=== PATIENT | female | born 1980 | race Caucasian/White ===

== ENCOUNTER 2021-01-09 03:47 | Emergency (ER) | payer SELFPAY ==
--- NOTE | 2021-01-09 03:58 | EDM.PDOC ---
ED HPI GENERAL MEDICAL PROBLEM - General Chief Complaint: Respiratory Problem Stated Complaint: COVID POSITIVE, CHEST PAIN Time Seen by Provider: 01/09/21 03:52 Source of Information: Reports: Patient History Limitations: Reports: No Limitations - History of Present Illness INITIAL COMMENTS - FREE TEXT/NARRATIVE: Is a 40-year-old female presents today for cough fatigue and back pain. Patient that she has had symptoms of cold for the past 2 weeks and her tested positive. She came in today because she has a palpitations made her nervous. She also has upper back pain. She denies any shortness of breath states she has some fever and chills earlier she took Tylenol and [id number] meds for. Currently on exam she complains only of upper back pain which also states been chronic for some time does not change. She denies any abdominal pain nausea vomiting or other complaints. back area Pain Score (Numeric/FACES): 4 - Related Data Allergies Allergy/AdvReac Type Severity Reaction Status Date / Time No Known Allergies Allergy Verified 01/09/21 03:58 Home Meds: Home Meds . [No Known Home Meds] 01/09/21 [History] ED ROS GENERAL - Review of Systems Review Of Systems: See Below Constitutional: Reports: No Symptoms HEENT: Reports: No Symptoms Respiratory: Reports: No Symptoms Cardiovascular: Reports: Palpitations Endocrine: Reports: No Symptoms GI/Abdominal: Reports: No Symptoms : Reports: No Symptoms Musculoskeletal: Reports: Back Pain Skin: Reports: No Symptoms Neurological: Reports: No Symptoms Psychiatric: Reports: No Symptoms Hematologic/Lymphatic: Reports: No Symptoms Immunologic: Reports: No Symptoms ED EXAM, GENERAL - Physical Exam Exam: See Below Exam Limited By: No Limitations General Appearance: Alert, WD/WN, No Apparent Distress Eye Exam: Bilateral Eye: EOMI, PERRL Head: Atraumatic Respiratory/Chest: No Respiratory Distress, Lungs Clear, Normal Breath Sounds Cardiovascular: Normal Peripheral Pulses, Regular Rate, Rhythm Peripheral Pulses: 2+: Radial (L), Radial (R) GI/Abdominal: Normal Bowel Sounds, Soft, Non-Tender Back Exam: Normal Inspection Extremities: Normal Inspection, Normal Range of Motion Neurological: Alert, Oriented, CN II-XII Intact, Normal Cognition, Normal Gait ED GENERAL MEDICAL PROCEDURES - Laceration/Wound Repair Head Lac/wound length in cm: 8 Appearance: Superficial Skin Prep: Saline Saline irrigation (cc's): 1,000 Exploration/Debridement/Repair: Wound Explored Closed with: Harper # of Sutures: 9 Tetanus Status Addressed: Yes Complications: No #1 Interpretation EKG Date: 01/09/21 Time: 03:48 Rhythm: NSR Rate (Beats/Min): 70 ST-T: Normal Course - Vital Signs Last Recorded V/S: Last Vital Signs Temp 96.8 F L 01/09/21 03:59 Pulse 79 01/09/21 04:45 Resp 18 01/09/21 04:45 BP 90/63 01/09/21 04:45 Pulse Ox 99 01/09/21 04:45 - Orders/Labs/Meds Orders: Active Orders 24 hr Category Date Time Status EKG Documentation Completion [RC] STAT Care 01/09/21 03:55 Active Labs: Laboratory Tests 01/09/21 01/09/21 01/09/21 Range/Units 04:00 04:00 04:00 WBC 12.10 H (4.0-11.0) K/uL RBC 4.38 (4.30-5.90) M/uL Hgb 13.1 (12.0-16.0) g/dL Hct 38.9 (36.0-46.0) % MCV 88.8 (80.0-98.0) fL MCH 29.9 (27.0-32.0) pg MCHC 33.7 (31.0-37.0) g/dL RDW Std Deviation 41.3 (28.0-62.0) fl RDW Coeff of Tramaine 13 (11.0-15.0) % Plt Count 305 (150-400) K/uL MPV 9.50 (7.40-12.00) fL Neut % (Auto) 73.3 (48.0-80.0) % Lymph % (Auto) 24.4 (16.0-40.0) % [place] % (Auto) 1.4 (0.0-15.0) % Eos % (Auto) 0.7 (0.0-7.0) % Baso % (Auto) 0.2 (0.0-1.5) % Neut # (Auto) 8.9 H (1.4-5.7) K/uL Lymph # (Auto) 3.0 H (0.6-2.4) K/uL [place] # (Auto) 0.2 (0.0-0.8) K/uL Eos # (Auto) 0.1 (0.0-0.7) K/uL Baso # (Auto) 0.0 (0.0-0.1) K/uL Nucleated RBC % 0.0 /100WBC Nucleated RBCs # 0 K/uL D-Dimer, Quantitative 3.33 H (0.0-0.50) mg/L FEU Sodium 139 (136-145) mmol/L Potassium 3.9 (3.5-5.1) mmol/L Chloride 103 (98-107) mmol/L Carbon Dioxide 31.1 (21.0-32.0) mmol/L BUN 25 H (7.0-18.0) mg/dL Creatinine 0.9 (0.6-1.0) mg/dL Est Cr Clr Drug Dosing 86.84 mL/min Estimated GFR (MDRD) > 60.0 ml/min Glucose 102 (74-106) mg/dL Calcium 9.4 (8.5-10.1) mg/dL Total Bilirubin 0.3 (0.2-1.0) mg/dL AST 54 H (15-37) IU/L ALT 109 H (14-63) IU/L Alkaline Phosphatase 67 (46-116) U/L Troponin I < 0.050 (0.000-0.056) ng/mL Total Protein 6.6 (6.4-8.2) g/dL Albumin 3.2 L (3.4-5.0) g/dL Globulin 3.4 (2.6-4.0) g/dL Albumin/Globulin Ratio 0.9 (0.9-1.6) HCG, Qual (NEG) 01/09/21 Range/Units 04:00 WBC (4.0-11.0) K/uL RBC (4.30-5.90) M/uL Hgb (12.0-16.0) g/dL Hct (36.0-46.0) % MCV (80.0-98.0) fL MCH (27.0-32.0) pg MCHC (31.0-37.0) g/dL RDW Std Deviation (28.0-62.0) fl RDW Coeff of Tramaine (11.0-15.0) % Plt Count (150-400) K/uL MPV (7.40-12.00) fL Neut % (Auto) (48.0-80.0) % Lymph % (Auto) (16.0-40.0) % [place] % (Auto) (0.0-15.0) % Eos % (Auto) (0.0-7.0) % Baso % (Auto) (0.0-1.5) % Neut # (Auto) (1.4-5.7) K/uL Lymph # (Auto) (0.6-2.4) K/uL [place] # (Auto) (0.0-0.8) K/uL Eos # (Auto) (0.0-0.7) K/uL Baso # (Auto) (0.0-0.1) K/uL Nucleated RBC % /100WBC Nucleated RBCs # K/uL D-Dimer, Quantitative (0.0-0.50) mg/L FEU Sodium (136-145) mmol/L Potassium (3.5-5.1) mmol/L Chloride (98-107) mmol/L Carbon Dioxide (21.0-32.0) mmol/L BUN (7.0-18.0) mg/dL Creatinine (0.6-1.0) mg/dL Est Cr Clr Drug Dosing mL/min Estimated GFR (MDRD) ml/min Glucose (74-106) mg/dL Calcium (8.5-10.1) mg/dL Total Bilirubin (0.2-1.0) mg/dL AST (15-37) IU/L ALT (14-63) IU/L Alkaline Phosphatase (46-116) U/L Troponin I (0.000-0.056) ng/mL Total Protein (6.4-8.2) g/dL Albumin (3.4-5.0) g/dL Globulin (2.6-4.0) g/dL Albumin/Globulin Ratio (0.9-1.6) HCG, Qual NEGATIVE (NEG) Meds: Medications Discontinued Medications Generic Name Dose Route Start Last Admin Trade Name Freq PRN Reason Stop Dose Admin Acetaminophen 1,000 mg 01/09/21 05:44 Acetaminophen 500 Mg Tab PO 01/09/21 05:45 ONETIME ONE Iopamidol 75 ml 01/09/21 04:58 01/09/21 05:33 Iopamidol 755 Mg/Ml 500 Ml Multipack Bottle IVPUSH 01/09/21 04:59 75 ml ONETIME ONE Administration Ondansetron HCl 4 mg 01/09/21 05:44 Ondansetron 4 Mg Tab.Dis PO 01/09/21 05:45 ONETIME ONE - Re-Assessments/Exams Free Text/Narrative Re-Assessment/Exam: 01/09/21 06:02 [place] labs x-ray and CT PE are reviewed. Patient continues to sat well and looks well on exam will be discharged to follow-up primary care physician. Departure - Departure Time of Disposition: 06:03 Disposition: Home, Self-Care 01 Condition: Good Clinical Impression: Body aches, Chest pain - Discharge Information *PRESCRIPTION DRUG MONITORING PROGRAM REVIEWED*: Not Applicable *COPY OF PRESCRIPTION DRUG MONITORING REPORT IN PATIENT TRAVIS: Not Applicable Instructions: Nonspecific Chest Pain, Adult, [id number] Referrals: Carlos Collins MD [Primary Care Provider] - Forms: ED Department Discharge Additional Instructions: The following information is given to patients seen in the emergency department who are being discharged to home. This information is to outline your options for follow-up care. We provide all patients seen in our emergency department with a follow-up referral. The need for follow-up, as well as the timing and circumstances, are variable depending upon the specifics of your emergency department visit. If you don't have a primary care physician on staff, we will provide you with a referral. We always advise you to contact your personal physician following an emergency department visit to inform them of the circumstance of the visit and for follow-up with them and/or the need for any referrals to a consulting specialist. The emergency department will also refer you to a specialist when appropriate. This referral assures that you have the opportunity for follow-up care with a specialist. All of these measure are taken in an effort to provide you with optimal care, which includes your follow-up. Under all circumstances we always encourage you to contact your private physician who remains a resource for coordinating your care. When calling for follow-up care, please make the office aware that this follow-up is from your recent emergency room visit. If for any reason you are refused follow-up, please contact the [facility] Emergency Department at and asked to speak to the emergency department charge nurse. Please follow up with your primary care physician. If you do not have a primary care physician, see below: [facility] [address] [place] [id number] My [facility] [address] [place] [address] You were seen here for multiple complaints. We did x-rays we did labs and also did CT scans without any clots your lungs. Your results came back within normal range we recommend you follow-up to primary care physician if you continue to have any problems or symptoms. Sepsis Event Note (ED) - Focused Exam Vital Signs: Vital Signs Temp Pulse Resp BP Pulse Ox 01/09/21 04:45 79 18 90/63 99 01/09/21 03:59 96.8 F L 73 18 110/66 99 - My Orders Last 24 Hours: My Active Orders 01/09/21 03:55 EKG Documentation Completion [RC] STAT - Assessment/Plan Last 24 Hours: My Active Orders 01/09/21 03:55 EKG Documentation Completion [RC] STAT Plan: Patient is a 40-year-old female who presents today for symptoms worsening Covid and also palpitations. Patient heart rate is normal as well as EKG but will obtain labs x-ray and reassess patient.
[2021-01-09 04:28] LABS: BLOOD UREA NITROGEN,BUN 25 mg/dL (7.0-18.0); CARBON DIOXIDE,CO2 31.1 mmol/L (21.0-32.0); CHLORIDE,CL 103 mmol/L (98-107); GLUCOSE RANDOM 102 mg/dL (74-106); POTASSIUM,K 3.9 mmol/L (3.5-5.1); SODIUM,NA 139 mmol/L (136-145)
--- NOTE | 2021-01-09 04:56 | CR ---
INDICATION: Cough. Shortness of breath. Back pain. TECHNIQUE: Chest 1 view. COMPARISON: None FINDINGS: Cardiovascular and mediastinum: Heart size and vasculature are normal in caliber and appearance. Mediastinum is within normal limits. Lungs and pleural space: Lungs are clear. No pleural effusion. No pneumothorax. Bones and soft tissues: No acute findings. IMPRESSION: No acute pulmonary process. Dictated by Lm Verma MD @ 01/09/2021 4:54:54 AM (Electronically Signed)
[2021-01-09] MEDS ORDERED: Iopamidol 755 MG/ML 500 ML Multipack Bottle IVPUSH ONE (04:58)
[2021-01-09] MEDS ORDERED: Acetaminophen 500 MG Tab PO ONE (05:44)
[2021-01-09] MEDS ORDERED: Ondansetron 4 MG Tab.DIS PO ONE (05:44)
--- NOTE | 2021-01-09 06:00 | CT ---
INDICATION: Cough, shortness of breath, chest pain. COMPARISON: Chest radiograph from today. TECHNIQUE: CT examination of the chest was performed with the uneventful intravenous administration of 100 cc of Omnipaque 350 while 3 mm thick axial sections were obtained through the pulmonary arteries. Please note that all CT scans at this facility use dose modulation, iterative reconstruction, and/or weight-based dosing when appropriate to reduce radiation dose to as low as reasonably achievable. FINDINGS: : There is no sign of pulmonary embolism, with normal enhancement and branching of the pulmonary arteries. The lungs are clear with no sign of significant infiltrate or mass. There is no sign of mediastinal or hilar mass or adenopathy. The heart is normal in appearance for the patient`s age. There is age appropriate appearance of the thoracic aorta and ascending great vessels. There is no sign of supraclavicular or axillary mass or adenopathy. Bilateral breast prostheses are present with no sign of any leak. The visualized superior liver, spleen, pancreas, kidneys, and adrenals are normal in appearance. The osseous structures are normal in appearance for the patient`s age. IMPRESSION: No sign of pulmonary embolism. Satisfactory appearance of bilateral breast prostheses. Otherwise normal CT of the chest with contrast. Please note that all CT scans at this facility use dose modulation, iterative reconstruction, and/or weight-based dosing when appropriate to reduce radiation dose to as low as reasonably achievable. Dictated by Sheldon Walter MD @ 01/09/2021 6:00:27 AM (Electronically Signed)
== END 2021-01-09 06:20 | disposition home or self-care (01) ==
LOC: MW.ED 03:47
DX: R07.89 Other chest pain (principal); S01.81XA Laceration without foreign body of other part of head, initial encounter; M79.10 Myalgia, unspecified site; X58.XXXA Exposure to other specified factors, initial encounter
CPT/HCPCS: 12004; 36415; 71045; 71275; 80053; 84484; 84703; 85025; 85379; 93005; 99284; A9270; Q9967

== ENCOUNTER 2021-02-04 11:48 | Emergency (ER) | payer OTHER ==
--- NOTE | 2021-02-04 13:27 | US ---
INDICATION: Pain and swelling left lower extremity TECHNIQUE: A compression venous ultrasound exam was performed of the left lower extremity using cheng-scale imaging, color Doppler and spectral Doppler analysis. FINDINGS: Sonographic imaging of the left lower extremity demonstrates normal compressibility and color Doppler venous blood flow within the common femoral vein, deep femoral vein, and the proximal greater saphenous vein. Within the thigh, the femoral vein is patent and compressible. At a lower level, the popliteal and posterior tibial veins also show normal compressibility and color Doppler venous blood flow. Limited imaging of the contralateral groin demonstrates a normal spectral waveform and color Doppler venous blood flow within the right common femoral vein. IMPRESSION: Normal venous ultrasound exam. No evidence of deep vein thrombosis within the left lower extremity. Dictated by Shelia Mcnulty MD @ 02/04/2021 1:25:36 PM (Electronically Signed)
--- NOTE | 2021-02-04 13:35 | EDM.PDOC ---
ED HPI GENERAL MEDICAL PROBLEM - General Chief Complaint: Lower Extremity Injury/Pain Stated Complaint: POSS BLOOD CLOTS IN LEG/SENT BY PRIMARY Time Seen by Provider: 02/04/21 12:03 Source of Information: Reports: Patient History Limitations: Reports: No Limitations - History of Present Illness INITIAL COMMENTS - FREE TEXT/NARRATIVE: HISTORY AND PHYSICAL: History of present illness: Patient is a 48-year-old female who presents to the emergency room with concerns of left leg pain, intermittent left arm pain and rib pain and fatigue. Approximately a month ago she was diagnosed with COVID-19. Since her diagnosis she has had persistent fatigue. Over the past few days she has had posterior left leg pain, states she has a family history of blood clots concerned she could have a DVT. States she started taking an Aspirin daily once she found out she had COVID, "paranoid about blood clots". She states she has intermittent tingling of the left arm although no numbness, weakness or difficulty performing ADLs. Skin is pink warm and dry. Occasional left lower rib pain with occasional cough. Patient denies any fever, chills, headache, change in vision, syncope or near syncope. Denies any chest pain, back pain, shortness of breath or hemoptysis. Denies any GI or symptoms. No recent travel or sick contacts. Review of systems: As per history of present illness and below otherwise all systems reviewed and negative. Past medical history: As per history of present illness and as reviewed below otherwise noncontributory. Surgical history: As per history of present illness and as reviewed below otherwise noncontributory. Social history: See social history for further information Family history: As per history of present illness and as reviewed below otherwise noncontributory. Physical exam: General: Well developed and well nourished 40 year old female. Alert and orientated x 3. Nontoxic in appearance and in no acute distress. Vital signs are stable and have been reviewed by me. Nursing notes were reviewed. HEENT: Atraumatic, normocephalic, pupils equal and reactive bilaterally, negative for conjunctival pallor or scleral icterus, mucous membranes moist, nontender, trachea midline. No drooling or trismus noted. No meningeal signs. No hot potato voice noted. Lungs: Slightly diminished RLL, otherwise clear to auscultation. No wheezes, rales, or rhonchi. Chest nontender. Normal work of breathing, no accessory muscles used. No cough noted. Heart: S1S2, regular rate and rhythm without overt murmur, gallops, or rubs. No JVD. No peripheral edema Abdomen: Soft, nondistended, nontender. Normoactive bowel sounds. Negative for masses or costovertebral tenderness. Skin: Intact, warm, dry. No lesions or rashes noted. Hematologic: No petechiae or purpra. Mucosa appropriate color and normal nail bed color and refill. Extremities: Atraumatic, moves all extremities per self without difficulty or deficits, negative for cords or calf pain. Strong pedal and pretibial pulses bilaterally with +CMS of lower extremities. She has strong radial pulses with equal and strong hand grasps, +CMS to bilateral upper extremities. Neurovascular unremarkable. Neuro: Awake, alert, oriented. Cranial nerves II through XII unremarkable. Cerebellum unremarkable. Motor and sensory unremarkable throughout. Exam nonfocal. Psychiatric: Mood and affect are appropriate. Normal thought process. Answering questions appropriately. Please note that the patient was seen and evaluated during the 2019 SARS-CoV-2 novel coronavirus pandemic period. Community viral transmission is ongoing at time of this encounter and the emergency department is operating under pandemic response procedures. Medical Decision Making: NIH: 0, no neurological symptoms. Ultrasound shows normal venous ultrasound exam. No evidence of deep vein thrombosis within the left lower extremity Labs are normal. CXR is read is normal, although appears like an early infiltrate of RLL. Will treat with doxy (due zithromax interaction with home meds). I have talked with the patient about today's findings, in addition to providing specific details for plan of care. Reassessment at the time of disposition demonstrates that the patient is in no acute distress. The patient is stable for discharge, counseling was provided and we discussed in great detail signs and symptoms that would prompt them to return to the Emergency Department. Medication, follow up and supportive care measures were reviewed and discussed. Voices understanding and is agreeable to plan of care. Denies any further questions or concerns at this time. Diagnostics: CBC, CMP, CPK, UA, left venous ultrasound Therapeutics: None Prescription: Doxycycline BID x 7 days Impression: Paresthesia Bronchitis Plan: 1. You were evaluated today on an emergent basis. Your chest x-ray is concerning for early infiltrate. Take the medication as directed. 2. You can alternate Tylenol and ibuprofen as needed for pain and fever management. 3. We encourage you to follow up with your primary care provider and/or recommended specialist in the next few days for re-evaluation and further care/management. 4. If your symptoms should worsen, new symptoms develop or any of the signs and symptoms we discussed should arise please return to the emergency room or call 911 (if needed). Definitive disposition and diagnosis as appropriate pending reevaluation and review of above. left thigh & calf, left shoulder & upper arm Pain Score (Numeric/FACES): 7 - Related Data Allergies Allergy/AdvReac Type Severity Reaction Status Date / Time No Known Allergies Allergy Verified 02/04/21 12:29 Home Meds: Home Meds Aspirin 81 mg PO DAILY 02/04/21 [History] Doxycycline [Vibramycin] 100 mg PO BID 7 Days #14 tab 02/04/21 [Rx] Propranolol [Inderal] 20 mg PO BID 02/04/21 [History] traMADol [Ultram] 50 mg PO Q4H PRN #15 tab 02/04/21 [Rx] Past Medical History - Past Health History Medical/Surgical History: Denies Medical/Surgical History HEENT History: Reports: None Cardiovascular History: Reports: None Respiratory History: Reports: None Gastrointestinal History: Reports: None Genitourinary History: Reports: None FRINGE KNOTTER History: Reports: None Musculoskeletal History: Reports: None Neurological History: Reports: None Psychiatric History: Reports: Anxiety Endocrine/Metabolic History: Reports: None Insulin Pump Model and Crap Shooter: None Hematologic History: Reports: None Immunologic History: Reports: None Oncologic (Cancer) History: Reports: None Dermatologic History: Reports: None - Infectious Disease History Infectious Disease History: Reports: Chicken Pox - Past Surgical History Female Surgical History: Reports: Other (See Below) Other Female Surgeries/Procedures: Breast Augmentation Social & Family History - Family History Cardiac: Reports: Blood Clots/VTE/DVT Oncologic: Reports: Uterine - Tobacco Use Tobacco Use Status *Q: Never Tobacco User - Caffeine Use Caffeine Use: Reports: Energy Drinks - Recreational Drug Use Recreational Drug Use: No Review of Systems - Review of Systems Review Of Systems: Comprehensive ROS is negative, except as noted in HPI. ED EXAM, GENERAL - Physical Exam Exam: See Below (See dictation) Course - Vital Signs Last Recorded V/S: Last Vital Signs Temp 97.8 F 10/05/21 14:54 Pulse 64 02/04/21 14:54 Resp 14 02/04/21 14:54 BP 90/53 L 02/04/21 14:54 Pulse Ox 99 02/04/21 14:54 - Orders/Labs/Meds Labs: Laboratory Tests 02/04/21 02/04/21 02/04/21 Range/Units 13:29 13:29 13:32 WBC 12.88 H (4.0-11.0) K/uL RBC 4.17 L (4.30-5.90) M/uL Hgb 12.6 (12.0-16.0) g/dL Hct 37.6 (36.0-46.0) % MCV 90.2 (80.0-98.0) fL MCH 30.2 (27.0-32.0) pg MCHC 33.5 (31.0-37.0) g/dL RDW Std Deviation 42.6 (28.0-62.0) fl RDW Coeff of Tramaine 13 (11.0-15.0) % Plt Count 293 (150-400) K/uL MPV 9.70 (7.40-12.00) fL Neut % (Auto) 73.2 (48.0-80.0) % Lymph % (Auto) 19.9 (16.0-40.0) % [place] % (Auto) 6.1 (0.0-15.0) % Eos % (Auto) 0.5 (0.0-7.0) % Baso % (Auto) 0.3 (0.0-1.5) % Neut # (Auto) 9.4 H (1.4-5.7) K/uL Lymph # (Auto) 2.6 H (0.6-2.4) K/uL [place] # (Auto) 0.8 (0.0-0.8) K/uL Eos # (Auto) 0.1 (0.0-0.7) K/uL Baso # (Auto) 0.0 (0.0-0.1) K/uL Nucleated RBC % 0.0 /100WBC Nucleated RBCs # 0 K/uL Sodium 141 (136-145) mmol/L Potassium 3.8 (3.5-5.1) mmol/L Chloride 103 (98-107) mmol/L Carbon Dioxide 27.3 (21.0-32.0) mmol/L BUN 7 (7.0-18.0) mg/dL Creatinine 0.7 (0.6-1.0) mg/dL Est Cr Clr Drug Dosing 107.77 mL/min Estimated GFR (MDRD) > 60.0 ml/min Glucose 114 H (74-106) mg/dL Calcium 8.9 (8.5-10.1) mg/dL Total Bilirubin 0.5 (0.2-1.0) mg/dL AST 13 L (15-37) IU/L ALT 27 (14-63) IU/L Alkaline Phosphatase 61 (46-116) U/L Creatine Kinase 43 (26-308) U/L Total Protein 7.4 (6.4-8.2) g/dL Albumin 3.7 (3.4-5.0) g/dL Globulin 3.7 (2.6-4.0) g/dL Albumin/Globulin Ratio 1.0 (0.9-1.6) Urine Color YELLOW Urine Appearance CLEAR Urine pH 5.5 (5.0-8.0) Ur Specific [place] 1.010 (1.001-1.035) Urine Protein NEGATIVE (NEGATIVE) mg/dL Urine Glucose (UA) NEGATIVE (NEGATIVE) mg/dL Urine Ketones NEGATIVE (NEGATIVE) mg/dL Urine Occult Blood NEGATIVE (NEGATIVE) Urine Nitrite NEGATIVE (NEGATIVE) Urine Bilirubin NEGATIVE (NEGATIVE) Urine Urobilinogen 0.2 (<2.0) EU/dL Ur Leukocyte Esterase NEGATIVE (NEGATIVE) Departure - Departure Time of Disposition: 14:47 Disposition: Home, Self-Care 01 Clinical Impression: Paresthesia, Bronchitis - Discharge Information Prescriptions: traMADol [Ultram] 50 mg PO Q4H PRN #15 tab PRN Reason: Pain Doxycycline [Vibramycin] 100 mg PO BID 7 Days #14 tab Instructions: Paresthesia, [id number] Referrals: Carlos Collins MD [Primary Care Provider] - Forms: ED Department Discharge Additional Instructions: The following information is given to patients seen in the emergency department who are being discharged to home. This information is to outline your options for follow-up care. We provide all patients seen in our emergency department with a follow-up referral. The need for follow-up, as well as the timing and circumstances, are variable depending upon the specifics of your emergency department visit. If you don't have a primary care physician on staff, we will provide you with a referral. We always advise you to contact your personal physician following an emergency department visit to inform them of the circumstance of the visit and for follow-up with them and/or the need for any referrals to a consulting specialist. The emergency department will also refer you to a specialist when appropriate. This referral assures that you have the opportunity for follow-up care with a specialist. All of these measure are taken in an effort to provide you with optimal care, which includes your follow-up. Under all circumstances we always encourage you to contact your private physician who remains a resource for coordinating your care. When calling for follow-up care, please make the office aware that this follow-up is from your recent emergency room visit. If for any reason you are refused follow-up, please contact the [facility] Emergency Department at and asked to speak to the emergency department charge nurse. [facility] [address] [place] [id number] [place] [address] Thank you for choosing the [facility] emergency department in [place] for your medical needs today. It was a pleasure caring for you. Today you were seen in the emergency department for leg pain. 1. You were evaluated today on an emergent basis. Your chest x-ray is concerning for early infiltrate. Take the medication as directed. 2. You can alternate Tylenol and ibuprofen as needed for pain and fever management. 3. We encourage you to follow up with your primary care provider and/or recommended specialist in the next few days for re-evaluation and further care/management. 4. If your symptoms should worsen, new symptoms develop or any of the signs and symptoms we discussed should arise please return to the emergency room or call 911 (if needed). Sepsis Event Note (ED) - Evaluation Sepsis Screening Result: No Definite Risk - Focused Exam Vital Signs: Vital Signs Temp Pulse Resp BP Pulse Ox 02/04/21 14:54 97.8 F 64 14 90/53 L 99 02/04/21 14:18 98.1 F 62 15 94/59 L 99 02/04/21 12:25 97 F 80 18 96/61 100
[2021-02-04 14:23] LABS: BLOOD UREA NITROGEN,BUN 7 mg/dL (7.0-18.0); CARBON DIOXIDE,CO2 27.3 mmol/L (21.0-32.0); CHLORIDE,CL 103 mmol/L (98-107); GLUCOSE RANDOM 114 mg/dL (74-106); POTASSIUM,K 3.8 mmol/L (3.5-5.1); SODIUM,NA 141 mmol/L (136-145)
--- NOTE | 2021-02-04 14:48 | CR ---
INDICATION: Pain, SOB TECHNIQUE: Chest 1 view. COMPARISON: FINDINGS: Cardiovascular and mediastinum: Heart size and vasculature are normal in caliber and appearance. Mediastinum is within normal limits. Lungs and pleural space: Lungs are clear. No sign of infiltrate or mass. No sign of pleural effusion. No pneumothorax. Bones and soft tissues: No significant findings. IMPRESSION: Unremarkable chest. Dictated by: Kristopher Otoole MD @ 02/04/2021 14:46:42 (Electronically Signed)
== END 2021-02-04 14:58 | disposition home or self-care (01) ==
LOC: MW.ED 11:48
DX: R20.2 Paresthesia of skin (principal); J40 Bronchitis, not specified as acute or chronic; Z79.82 Long term (current) use of aspirin; Z79.899 Other long term (current) drug therapy
CPT/HCPCS: 36415; 71045; 71045-26; 80053; 81003; 82550; 85025; 93971-26-LT; 93971-LT; 99284-25

== ENCOUNTER 2021-02-15 07:02 | Emergency (ER) | payer OTHER ==
--- NOTE | 2021-02-15 07:15 | EDM.PDOC ---
ED HPI GENERAL MEDICAL PROBLEM - General Stated Complaint: BACK PAIN, CHILLS, SHORTNESS OF BREATH Time Seen by Provider: 02/15/21 07:05 Source of Information: Reports: Patient History Limitations: Reports: No Limitations - History of Present Illness INITIAL COMMENTS - FREE TEXT/NARRATIVE: 40-year-old female history of COVID-19 infection roughly 1 month ago presents for back pain, chills, shortness of breath. Patient notes that she was diagnosed with possible bacterial pneumonia and finished a course of doxycycline roughly a week ago. Over the last couple of days she has had diffuse body aches, back pain, subjective fevers, mild shortness of breath. She denies pleuritic chest pain. She denies dysuria, hematuria. Back Pain Score (Numeric/FACES): 8 - Related Data Allergies Allergy/AdvReac Type Severity Reaction Status Date / Time No Known Allergies Allergy Verified 02/15/21 07:27 Home Meds: Home Meds Aspirin 81 mg PO DAILY 02/04/21 [History] Propranolol [Inderal] 20 mg PO BID 02/04/21 [History] traMADol [Ultram] 50 mg PO Q4H PRN #15 tab 02/04/21 [Rx] Past Medical History - Past Health History Medical/Surgical History: Denies Medical/Surgical History HEENT History: Reports: None Cardiovascular History: Reports: None Respiratory History: Reports: None Gastrointestinal History: Reports: None Genitourinary History: Reports: None DIETARY COOK History: Reports: None Musculoskeletal History: Reports: None Neurological History: Reports: None Psychiatric History: Reports: Anxiety Endocrine/Metabolic History: Reports: None Insulin Pump Model and Lithographic Retoucher Apprentice: None Hematologic History: Reports: None Immunologic History: Reports: None Oncologic (Cancer) History: Reports: None Dermatologic History: Reports: None - Infectious Disease History Infectious Disease History: Reports: Chicken Pox - Past Surgical History Female Surgical History: Reports: Other (See Below) Other Female Surgeries/Procedures: Breast Augmentation Social & Family History - Family History Cardiac: Reports: Blood Clots/VTE/DVT Oncologic: Reports: Uterine - Caffeine Use Caffeine Use: Reports: Energy Drinks ED ROS GENERAL - Review of Systems Review Of Systems: Comprehensive ROS is negative, except as noted in HPI. ED EXAM, GENERAL - Physical Exam Exam: See Below Exam Limited By: No Limitations General Appearance: Alert, WD/WN, No Apparent Distress Ears: Hearing Grossly Normal Throat/Mouth: Normal Voice, No Airway Compromise Head: Atraumatic, Normocephalic Respiratory/Chest: No Respiratory Distress, Lungs Clear, Normal Breath Sounds, No Accessory Muscle Use Cardiovascular: Normal Peripheral Pulses, Regular Rate, Rhythm Extremities: Normal Inspection Neurological: Alert, Normal Cognition, Normal Gait Psychiatric: Normal Affect, Normal Mood Skin Exam: Warm, Dry, Intact, Normal Color Course - Vital Signs Last Recorded V/S: Last Vital Signs Temp 97.1 F 02/15/21 07:28 Pulse 81 02/15/21 07:28 Resp 18 02/15/21 07:28 BP 91/56 L 02/15/21 07:28 Pulse Ox 98 02/15/21 07:28 - Orders/Labs/Meds Meds: Medications Discontinued Medications Generic Name Dose Route Start Last Admin Trade Name Vee PRN Reason Stop Dose Admin Acetaminophen 1,000 mg 02/15/21 07:56 02/15/21 08:12 Acetaminophen 500 Mg Tab PO 02/15/21 07:57 1,000 mg ONETIME ONE Administration Ibuprofen 600 mg 02/15/21 07:56 02/15/21 08:12 Ibuprofen 600 Mg Tab PO 02/15/21 07:57 Not Given ONETIME ONE Ketorolac Tromethamine 30 mg 02/15/21 07:58 02/15/21 08:11 Ketorolac 30 Mg/Ml Sdv IM 02/15/21 07:59 30 mg ONETIME ONE Administration - Re-Assessments/Exams Free Text/Narrative Re-Assessment/Exam: 02/15/21 07:57 Vital signs and exam are unremarkable. Will get chest x-ray to ensure pneumonia has resolved. Will give Tylenol and Motrin for analgesia and anti-inflammatory properties. I did discuss with patient potential for long-haul Covid symptoms and recommend that she follow-up with her primary care physician for further work-up. She does have a primary care physician that she can follow-up with. 02/15/21 09:06 Chest x-ray is unremarkable. Will discharge patient with recommendation to follow-up with PMD for further work-up. Departure - Departure Time of Disposition: 09:06 Disposition: Home, Self-Care 01 Condition: Good Clinical Impression: Body aches - Discharge Information Instructions: COVID-19: How to Protect Yourself and Others - [facility] Referrals: Carlos Collins MD [Primary Care Provider] - Additional Instructions: Your chest x-ray is unremarkable. There is no evidence of pneumonia. I would recommend following up with your primary care physician particularly if your symptoms do not improve in the next couple of weeks. You could be suffering from long-haul Covid symptoms. There is no specific test to check for this. The following information is given to patients seen in the emergency department who are being discharged to home. This information is to outline your options for follow-up care. We provide all patients seen in our emergency department with a follow-up referral. The need for follow-up, as well as the timing and circumstances, are variable depending upon the specifics of your emergency department visit. If you don't have a primary care physician on staff, we will provide you with a referral. We always advise you to contact your personal physician following an emergency department visit to inform them of the circumstance of the visit and for follow-up with them and/or the need for any referrals to a consulting specialist. The emergency department will also refer you to a specialist when appropriate. This referral assures that you have the opportunity for follow-up care with a specialist. All of these measure are taken in an effort to provide you with optimal care, which includes your follow-up. Under all circumstances we always encourage you to contact your private physician who remains a resource for coordinating your care. When calling for follow-up care, please make the office aware that this follow-up is from your recent emergency room visit. If for any reason you are refused follow-up, please contact the [facility] Emergency Department at and asked to speak to the emergency department charge nurse. Please follow up with your primary care physician. If you do not have a primary care physician, see below: [facility] [address] [address] [facility] [address] [place] [address] [facility] [address] [place] [address] Sepsis Event Note (ED) - Focused Exam Vital Signs: Vital Signs Temp Pulse Resp BP Pulse Ox 02/15/21 07:28 97.1 F 81 18 91/56 L 98
[2021-02-15] MEDS ORDERED: Acetaminophen 500 MG Tab PO ONE (07:56)
[2021-02-15] MEDS ORDERED: Ibuprofen 600 MG Tab PO ONE (07:56)
[2021-02-15] MEDS ORDERED: Ketorolac 30 MG/ML SDV IM ONE (07:58)
--- NOTE | 2021-02-15 09:02 | CR ---
INDICATION: Recent pneumonia; finished course of antibiotic; short of breath. COMPARISON: Chest radiograph February 04, 2021. TECHNIQUE: Portable AP chest. FINDINGS: Normal size cardiac silhouette. Clear lung orona with no evidence of acute pulmonic infiltrates or CHF. No pneumothorax or pleural effusion. IMPRESSION: Negative portable AP chest. Dictated by Shelia Mcnulty MD @ 02/15/2021 9:01:41 AM (Electronically Signed)
== END 2021-02-15 09:14 | disposition home or self-care (01) ==
LOC: MW.ED 07:02
DX: M54.9 Dorsalgia, unspecified (principal); Z79.82 Long term (current) use of aspirin
CPT/HCPCS: 71045; 96372; 99283; A9270; J1885

== ENCOUNTER 2021-03-19 02:04 | Emergency (ER) | payer OTHER ==
--- NOTE | 2021-03-19 02:35 | EDM.PDOC ---
ED HPI GENERAL MEDICAL PROBLEM - General Chief Complaint: General Stated Complaint: CHEST PAIN AND LEFT ARM PAIN Time Seen by Provider: 03/19/21 02:13 Source of Information: Reports: Patient History Limitations: Reports: No Limitations - History of Present Illness INITIAL COMMENTS - FREE TEXT/NARRATIVE: 40 yo female with history of anxiety presents with chest pain and shortness of breath. She notes left-sided chest pain, described as dull pain rated 5/10 with intermittent severe sharp stabbing pain. This has been intermittent over the last 3 days. She thinks she might of had about 5 episodes. She admits to chills, nausea and feels clammy, with dull ache to her left arm. She denies fever, vomiting, abdominal pain or cough, hemoptysis, LUE swelling. She does not smoke. She does not have a history of hypertension or diabetes, hyperlipidemia, or history of PE or DVT. She underwent an cardiac ECHO on Wednesday. Results are pending. She does not have a FHx of NC or CAD. ROS: A 10-point review of systems, other than pertinent positives and negatives as stated per HPI, is otherwise negative Past medical history: No additional pertinent history Past Surgical history: No additional pertinent history Social history: No additional pertinent history Family history: No additional pertinent history, no h/o NC or CAD. PHYSICAL EXAM General: AOx4, GCS = 15, No distress HEENT: dry mucous membrane Neck: supple, no meningismus, no Kernig or Brudzinski Cardiac: S1S2 RRR, midsternal chest wall tenderness Respiratory: CTAB, no crackles or rales, no wheezing Abdomen: Soft, nontender, no rebound or guarding, nondistended, no pulsatile mass. Back: nontender Musculoskeletal: NVI distally, no deformity Neuro: No focal deficits, CN 2 - 12 WNL. chest Pain Score (Numeric/FACES): 5 - Related Data Allergies Allergy/AdvReac Type Severity Reaction Status Date / Time No Known Allergies Allergy Verified 03/19/21 02:19 Home Meds: Home Meds Aspirin 81 mg PO DAILY 02/04/21 [History] Propranolol [Inderal] 20 mg PO BID 02/04/21 [History] traMADol [Ultram] 50 mg PO Q4H PRN #15 tab 02/04/21 [Rx] Naproxen [Naprosyn] 500 mg PO Q12HR #30 tab 03/19/21 [Rx] Past Medical History - Past Health History Medical/Surgical History: Denies Medical/Surgical History HEENT History: Reports: None Cardiovascular History: Reports: None Respiratory History: Reports: None Gastrointestinal History: Reports: None Genitourinary History: Reports: None CUSTOMER SERVICES MANAGER History: Reports: None Musculoskeletal History: Reports: None Neurological History: Reports: None Psychiatric History: Reports: Anxiety Endocrine/Metabolic History: Reports: None Insulin Pump Model and [employer] Services Supervisor: None Hematologic History: Reports: None Immunologic History: Reports: None Oncologic (Cancer) History: Reports: None Dermatologic History: Reports: None - Infectious Disease History Infectious Disease History: Reports: Chicken Pox - Past Surgical History Female Surgical History: Reports: Other (See Below) Other Female Surgeries/Procedures: Breast Augmentation Social & Family History - Family History Cardiac: Reports: Blood Clots/VTE/DVT Oncologic: Reports: Uterine - Tobacco Use Tobacco Use Status *Q: Never Tobacco User - Caffeine Use Caffeine Use: Reports: Energy Drinks - Recreational Drug Use Recreational Drug Use: No ED ROS GENERAL - Review of Systems Review Of Systems: See Below (see dictation) ED EXAM, GENERAL - Physical Exam Exam: See Below (see dictation) #1 Interpretation EKG Interpretation Comments: Heart rate = 58 bpm, normal sinus rhythm, normal QRS interval, no STEMI. EKG and rhythm strip interpreted by me at 0216 Course - Vital Signs Last Recorded V/S: Last Vital Signs Temp 96.8 F L 03/19/21 02:15 Pulse 61 03/19/21 06:23 Resp 18 03/19/21 02:15 BP 90/56 L 03/19/21 06:23 Pulse Ox 99 03/19/21 06:23 - Orders/Labs/Meds Orders: Active Orders 24 hr Category Date Time Status Cardiac Monitoring [RC] . DIRECTED Care 03/19/21 02:12 Active Pulse Oximetry [RC] ASDIRECTED Care 03/19/21 02:12 Active Labs: Laboratory Tests 03/19/21 03/19/21 03/19/21 Range/Units 02:32 02:32 02:32 WBC 9.67 (4.0-11.0) K/uL RBC 4.25 L (4.30-5.90) M/uL Hgb 12.9 (12.0-16.0) g/dL Hct 39.1 (36.0-46.0) % MCV 92.0 (80.0-98.0) fL MCH 30.4 (27.0-32.0) pg MCHC 33.0 (31.0-37.0) g/dL RDW Std Deviation 45.1 (28.0-62.0) fl RDW Coeff of Tramaine 13 (11.0-15.0) % Plt Count 260 (150-400) K/uL MPV 9.60 (7.40-12.00) fL Neut % (Auto) 41.5 L (48.0-80.0) % Lymph % (Auto) 45.6 H (16.0-40.0) % Bullitt % (Auto) 10.9 (0.0-15.0) % Eos % (Auto) 1.4 (0.0-7.0) % Baso % (Auto) 0.6 (0.0-1.5) % Neut # (Auto) 4.0 (1.4-5.7) K/uL Lymph # (Auto) 4.4 H (0.6-2.4) K/uL Bullitt # (Auto) 1.1 H (0.0-0.8) K/uL Eos # (Auto) 0.1 (0.0-0.7) K/uL Baso # (Auto) 0.1 (0.0-0.1) K/uL Nucleated RBC % 0.0 /100WBC Nucleated RBCs # 0 K/uL Sodium 140 (136-145) mmol/L Potassium 4.0 (3.5-5.1) mmol/L Chloride 105 (98-107) mmol/L Carbon Dioxide 27.6 (21.0-32.0) mmol/L BUN 8 (7.0-18.0) mg/dL Creatinine 0.7 (0.6-1.0) mg/dL Est Cr Clr Drug Dosing 111.65 mL/min Estimated GFR (MDRD) > 60.0 ml/min Glucose 99 (74-106) mg/dL Calcium 8.9 (8.5-10.1) mg/dL Total Bilirubin 0.4 (0.2-1.0) mg/dL AST 16 (15-37) IU/L ALT 33 (14-63) IU/L Alkaline Phosphatase 64 (46-116) U/L Troponin I < 0.050 (0.000-0.056) ng/mL B-Natriuretic Peptide 11 (<100) PG/ML Total Protein 7.3 (6.4-8.2) g/dL Albumin 3.3 L (3.4-5.0) g/dL Globulin 4.0 (2.6-4.0) g/dL Albumin/Globulin Ratio 0.8 L (0.9-1.6) SARS-CoV-2 RNA (GONZÁLEZ) (NEGATIVE) 03/19/21 03/19/21 Range/Units 02:32 05:40 WBC (4.0-11.0) K/uL RBC (4.30-5.90) M/uL Hgb (12.0-16.0) g/dL Hct (36.0-46.0) % MCV (80.0-98.0) fL MCH (27.0-32.0) pg MCHC (31.0-37.0) g/dL RDW Std Deviation (28.0-62.0) fl RDW Coeff of Tramaine (11.0-15.0) % Plt Count (150-400) K/uL MPV (7.40-12.00) fL Neut % (Auto) (48.0-80.0) % Lymph % (Auto) (16.0-40.0) % Bullitt % (Auto) (0.0-15.0) % Eos % (Auto) (0.0-7.0) % Baso % (Auto) (0.0-1.5) % Neut # (Auto) (1.4-5.7) K/uL Lymph # (Auto) (0.6-2.4) K/uL Bullitt # (Auto) (0.0-0.8) K/uL Eos # (Auto) (0.0-0.7) K/uL Baso # (Auto) (0.0-0.1) K/uL Nucleated RBC % /100WBC Nucleated RBCs # K/uL Sodium (136-145) mmol/L Potassium (3.5-5.1) mmol/L Chloride (98-107) mmol/L Carbon Dioxide (21.0-32.0) mmol/L BUN (7.0-18.0) mg/dL Creatinine (0.6-1.0) mg/dL Est Cr Clr Drug Dosing mL/min Estimated GFR (MDRD) ml/min Glucose (74-106) mg/dL Calcium (8.5-10.1) mg/dL Total Bilirubin (0.2-1.0) mg/dL AST (15-37) IU/L ALT (14-63) IU/L Alkaline Phosphatase (46-116) U/L Troponin I < 0.050 (0.000-0.056) ng/mL B-Natriuretic Peptide (<100) PG/ML Total Protein (6.4-8.2) g/dL Albumin (3.4-5.0) g/dL Globulin (2.6-4.0) g/dL Albumin/Globulin Ratio (0.9-1.6) SARS-CoV-2 RNA (GONZÁLEZ) NEGATIVE (NEGATIVE) Meds: Medications Discontinued Medications Generic Name Dose Route Start Last Admin Trade Name Freq PRN Reason Stop Dose Admin Lactated Ringer's 1,000 mls @ 999 mls/hr 03/19/21 02:40 03/19/21 02:52 Ringers, Lactated IV 03/19/21 03:40 999 mls/hr .BOLUS ONE Administration Iopamidol 75 ml 03/19/21 03:45 03/19/21 03:45 Iopamidol 755 Mg/Ml 500 Ml Multipack Bottle IVPUSH 03/19/21 03:46 75 ml ONETIME STA Administration Ketorolac Tromethamine 30 mg 03/19/21 02:40 03/19/21 02:55 Ketorolac 30 Mg/Ml Sdv IVPUSH 03/19/21 02:41 30 mg ONETIME ONE Administration Lorazepam 1 mg 03/19/21 02:40 03/19/21 02:52 Lorazepam 2 Mg/Ml Sdv IVPUSH 03/19/21 02:41 1 mg ONETIME ONE Administration - Re-Assessments/Exams Free Text/Narrative Re-Assessment/Exam: 03/19/21 07:04 After delta troponin in the ER, the patient is currently stable for discharge. I performed a repeat exam and did not appreciate new abnormal findings. Patient exhibits normal vital signs. I advised the patient to return to the ER for reevaluation if symptoms worsened, including fever, worsening pain, or any other worrisome symptoms. I instructed the patient to follow up with Dr. Collins and Dr. Taylor (cardiology) within 2-3 days. MEDICAL DECISION MAKING: I reviewed the patients past medical records, lab and radiographic findings. I discussed the case with the patient. My differential diagnosis included: Chest wall pain, ACS, pneumonia, PE, pneumothorax,pulmonary edema/CHF, aortic dissection, pericarditis, intra-abdominal process. Given the EKG and clinical history, I do not suspect pericarditis. There is no evidence of pneumothorax or infiltrate on CXR. Aortic dissection and PE were ruled out on CTA. The patients history, chest X-ray, and exam do not suggest pulmonary edema/congestive heart failure. Intra-abdominal pathology felt unlikely given benign/non tender abdominal exam. Acute coronary syndrome was considered but there are negative serial biomarkers, no acute ischemic EKG changes, and the patient has a low HEART score < 3. Based on this, I feel that there is low risk for short-term major adverse cardiac event. I have discussed this with the patient and reviewed options for outpatient management. The patient verbalizes an excellent understanding of the above including presence of small risk of short-term major adverse cardiac event even in the setting of low HEART score, negative cardiac biomarker, and compendium of elements of this presentation. The patient wishes to continue to pursue further workup on as an outpatient. Departure - Departure Time of Disposition: 07:01 Disposition: Home, Self-Care 01 Condition: Good Clinical Impression: Chest pain - Discharge Information *PRESCRIPTION DRUG MONITORING PROGRAM REVIEWED*: Not Applicable *COPY OF PRESCRIPTION DRUG MONITORING REPORT IN PATIENT TRAVIS: Not Applicable Prescriptions: Naproxen [Naprosyn] 500 mg PO Q12HR #30 tab Instructions: Nonspecific Chest Pain, Adult Referrals: Carlos Collins MD [Primary Care Provider] - Forms: ED Department Discharge Additional Instructions: The need for follow-up, as well as the timing and circumstances, are variable depending upon the specifics of your emergency department visit. If you don't have a primary care physician on staff, we will provide you with a referral. We always advise you to contact your personal physician following an emergency department visit to inform them of the circumstance of the visit and for follow-up with them and/or the need for any referrals to a consulting specialist. The emergency department will also refer you to a specialist when appropriate. This referral assures that you have the opportunity for follow-up care with a specialist. All of these measure are taken in an effort to provide you with optimal care, which includes your follow-up. Under all circumstances we always encourage you to contact your private physician who remains a resource for coordinating your care. When calling for follow-up care, please make the office aware that this follow-up is from your recent emergency room visit. If for any reason you are refused follow-up, please contact the Emergency Department at and asked to speak to the emergency department charge nurse. If you do not have a primary care doctor, please follow up with the paz gamino within 3-5 days. [facility] - Primary Care [address] [place] [address] [id number] [facility] [address] [place] [id number] Sepsis Event Note (ED) - Evaluation Sepsis Screening Result: No Definite Risk - Focused Exam Vital Signs: Vital Signs Temp Pulse Resp BP Pulse Ox 03/19/21 06:23 61 90/56 L 99 03/19/21 05:51 60 88/49 L 99 03/19/21 05:04 61 95/43 L 97 03/19/21 04:05 64 93/46 L 96 03/19/21 02:58 64 91/59 L 99 03/19/21 02:18 64 91/59 L 99 03/19/21 02:15 96.8 F L 68 18 107/74 97 - My Orders Last 24 Hours: My Active Orders 03/19/21 02:12 Cardiac Monitoring [RC] . DIRECTED Pulse Oximetry [RC] ASDIRECTED - Assessment/Plan Last 24 Hours: My Active Orders 03/19/21 02:12 Cardiac Monitoring [RC] . DIRECTED Pulse Oximetry [RC] ASDIRECTED
--- NOTE | 2021-03-19 02:36 | CR ---
Indication: Chest pain Technique: Chest 1 view Comparison: Chest x-ray 02/15/2021 Findings/Impression: Cardiovascular and mediastinum: Heart size and vasculature are normal in caliber and appearance. Lungs and pleural space: Lungs are clear. No sign of infiltrate or mass. No sign of pleural effusion. No pneumothorax. Bones and soft tissues: No acute findings. Dictated by Jovi Ferreira MD @ 03/19/2021 2:34:54 AM (Electronically Signed)
[2021-03-19] MEDS ORDERED: Lactated Ringers 1,000 ML IV ONE (02:40)
[2021-03-19] MEDS ORDERED: Ketorolac 30 MG/ML SDV IVPUSH ONE (02:40)
[2021-03-19] MEDS ORDERED: LORazepam 2 MG/ML SDV IVPUSH ONE (02:40)
[2021-03-19 03:13] LABS: BLOOD UREA NITROGEN,BUN 8 mg/dL (7.0-18.0); CARBON DIOXIDE,CO2 27.6 mmol/L (21.0-32.0); CHLORIDE,CL 105 mmol/L (98-107); GLUCOSE RANDOM 99 mg/dL (74-106); SODIUM,NA 140 mmol/L (136-145)
[2021-03-19] MEDS ORDERED: Iopamidol 755 MG/ML 500 ML Multipack Bottle IVPUSH STA (03:45)
--- NOTE | 2021-03-19 04:15 | CT ---
INDICATION: Chest pain TECHNIQUE: CT chest PE was acquired with 75 cc Isovue 370 intravenous contrast. COMPARISON: Chest CT 01/09/2021 FINDINGS: Heart and vasculature: Contrast opacification of the pulmonary arterial tree is adequate. No sign of pulmonary embolism. Heart size is normal. Thoracic aorta and pulmonary artery are normal in caliber.Trace air at the right ventricular outflow tract, likely iatrogenic. Lungs and pleural: No suspicious nodules or infiltrates. No pleural effusions, pleural thickening, or pneumothorax. Lymph nodes/mediastinum: No mediastinal, hilar, or axillary adenopathy. Chest wall: Status post bilateral breast implants. Upper abdomen: Low density prominence in the left renal mariely, similar to the prior exam. Bones: Unremarkable for age. IMPRESSION: Unremarkable chest CTA. No evidence of pulmonary embolus. Please note that all CT scans at this facility use dose modulation, iterative reconstruction, and/or weight-based dosing when appropriate to reduce radiation dose to as low as reasonably achievable. Dictated by Jovi Ferreira MD @ 03/19/2021 4:13:31 AM (Electronically Signed)
== END 2021-03-19 07:15 | disposition home or self-care (01) ==
LOC: MW.ED 02:04
DX: R07.2 Precordial pain (principal); R07.89 Other chest pain; Z79.82 Long term (current) use of aspirin; Z79.899 Other long term (current) drug therapy; Z20.822 Contact with and (suspected) exposure to COVID-19
CPT/HCPCS: 36415; 71045; 71275; 80053; 83880; 84484; 85025; 87635; 93005; 96374; 96375; 99285; J1885; J2060; J7120; Q9967; U0002